=== PATIENT | female | born 1985 | race African-American/Black ===

== ENCOUNTER 2022-04-24 10:59 | Emergency (ER) | payer MEDICAID ==
[~2022-04-24] VITALS: Ht 167.6 cm; Wt 123.0 kg
[2022-04-24 11:08] VITALS: BP 128/72
[2022-04-24] MEDS ORDERED: ACETAMINOPHEN 325MG TABLET PO ONE (12:30)
[2022-04-24] MEDS ORDERED: TOPUD PO (14:10)
== END 2022-04-24 14:27 | disposition home or self-care (01) ==
LOC: ER 10:59
DX: Z48.00 Encounter for change or removal of nonsurgical wound dressing (principal); M79.18 Myalgia, other site; J45.909 Unspecified asthma, uncomplicated; I11.0 Hypertensive heart disease with heart failure; I50.9 Heart failure, unspecified; Z87.81 Personal history of (healed) traumatic fracture
CPT/HCPCS: 29125; 99283

== ENCOUNTER 2022-05-31 12:26 | Emergency (ER) | payer MEDICAID ==
[~2022-05-31] VITALS: Ht 167.6 cm; Wt 114.0 kg
[~2022-05-31 12:26] MED LIST: TOPUD PO
[2022-05-31] MEDS ORDERED: IBUPROFEN 600MG TABLET PO STA (13:47)
[2022-05-31] MEDS ORDERED: SODIUM CHLORIDE 0.9% 1,000 ML IV ONE (14:00)
[2022-05-31] MEDS ORDERED: LORAZEPAM 1MG TABLET PO ONE (14:00)
[2022-05-31 15:36] LABS: BASOPHILS % 0.5 % (0.0-2.0); EOSINOPHILS % 0.7 % (0.0-5.0); HEMATOCRIT. 35.4 % (36.0-48.0); HEMOGLOBIN. 11.5 g/dL (12.0-16.0); LYMPHOCYTES % 23.4 % (20.0-50.0); MEAN CORPUSCULAR HEMOGLOBIN 25.5 pg (28.0-32.0); MEAN CORPUSCULAR VOLUME 78.4 fL (81.0-99.0); MEAN PLATELET VOLUME 10.5 fl (7.4-10.4); NEUTROPHILS % 66.4 % (40.0-76.0); PLATELET 191 x1000/uL (130-400); RED BLOOD CELL COUNT 4.51 mill/uL (4.2-5.4); RED CELL DISTRIBUTION WIDTH 15.7 % (11.6-14.6)
[2022-05-31 15:44] LABS: CLARITY URINE CLOUDY (CLEAR); COLOR URINE DARK YELLOW (YELLOW); KETONES URINE 1+ (NEGATIVE); LEUKOCYTE ESTERASE URINE 1+ (NEGATIVE); NITRITE URINE NEGATIVE (NEGATIVE); OCCULT BLOOD URINE 3+ (NEGATIVE); PH URINE 5.5 (4.5-8.0); PROTEIN URINE TRACE (NEGATIVE); SPECIFIC GRAVITY URINE 1.024 (1.005-1.030)
[2022-05-31 15:52] LABS: CHLORIDE 110 mEq/L (98-107)
[2022-05-31 16:03] LABS: ETHANOL BLOOD < 10 mg/dL
[2022-05-31 16:07] LABS: *AMPHETAMINES SCREEN URINE NEGATIVE (NEGATIVE); *BARBITURATES SCREEN URINE NEGATIVE (NEGATIVE); *BENZODIAZEPINES SCREEN URINE NEGATIVE (NEGATIVE); *COCAINE SCREEN URINE NEGATIVE (NEGATIVE); METHADONE URINE SCREEN NEGATIVE (NEGATIVE); OPIATES URINE SCREEN NEGATIVE (NEGATIVE); PHENCYCLIDINE URINE SCREEN NEGATIVE (NEGATIVE)
[2022-05-31 16:08] LABS: CANNABINOID URINE SCREEN PRESUMTIVE POSITIVE (NEGATIVE)
[2022-05-31] MEDS ORDERED: VIST25 MT (16:27)
[2022-05-31 17:08] VITALS: BP 158/98
== END 2022-05-31 17:20 | disposition home or self-care (01) ==
LOC: ER 12:26
DX: F41.0 Panic disorder [episodic paroxysmal anxiety] (principal); I11.0 Hypertensive heart disease with heart failure; I50.9 Heart failure, unspecified; D64.9 Anemia, unspecified; F32.9 Major depressive disorder, single episode, unspecified; J45.909 Unspecified asthma, uncomplicated
CPT/HCPCS: 36415; 71045; 80053; 80305; 80307; 80320; 80329; 81003; 82962; 83880; 84484; 85025; 96360; 99284; J7030; Z7610; G0480

== ENCOUNTER 2023-01-02 19:35 | Emergency (ER) | payer MEDICAID ==
[~2023-01-02] VITALS: Ht 167.6 cm; Wt 107.0 kg
[~2023-01-02 19:35] MED LIST changes: +VIST25 MT
[2023-01-02 20:02] VITALS: O2SAT 100
[2023-01-02 21:13] LABS: BASOPHILS % 0.4 % (0.0-2.0); DIFFERENTIAL COMMENT 0; EOSINOPHILS % 0.4 % (0.0-5.0); HEMATOCRIT. 37.8 % (36.0-48.0); HEMOGLOBIN. 12.3 g/dL (12.0-16.0); LYMPHOCYTES % 15.3 % (20.0-50.0); MEAN CORPUSCULAR HEMOGLOBIN 25.1 pg (28.0-32.0); MEAN CORPUSCULAR HGB CONC 32.6 g/dL (31.0-37.0); MEAN PLATELET VOLUME 11.4 fl (7.4-10.4); MONOCYTES % 5.3 % (2.0-8.0); NEUTROPHILS % 78.6 % (40.0-76.0); PLATELET 193 x1000/uL (130-400); RED BLOOD CELL COUNT 4.91 mill/uL (4.2-5.4); RED CELL DISTRIBUTION WIDTH 15.8 % (11.6-14.6); WHITE BLOOD COUNT 7.8 x1000/uL (4.5-11.0)
[2023-01-02 21:19] LABS: CHLORIDE 112 mEq/L (98-107); INDEX HEMOLYSI 1 (1-3); INDEX ICTERIC 1 (1-4); INDEX LIPEMIC 1 (1-3); POTASSIUM 3.6 mEq/L (3.5-5.1); SODIUM 141 mEq/L (136-145)
[2023-01-02 21:30] LABS: ACETAMINOPHEN <2 ug/mL ug/mL (10-30); ALANINE AMINOTRANSFERASE 22 IU/L (13-61); ALBUMIN 3.4 g/dL (3.4-5.0); ASPARTATE AMINOTRANSFERASE 16 IU/L (15-37); BILIRUBIN TOTAL 0.5 mg/dL (0.1-1.0); CALCIUM 8.6 mg/dL (8.5-10.1); CARBON DIOXIDE 24 mEq/L (21-32); CREATININE 0.7 mg/dL (0.6-1.3); ETHANOL BLOOD < 10 mg/dL (<10); GLUCOSE 97 mg/dL (70-105); PROTEIN TOTAL 8.1 g/dL (6.0-8.3); UREA NITROGEN BLOOD 10 mg/dL (7-21)
[2023-01-02 22:09] LABS: HCG SCREEN NEGATIVE
[2023-01-03 03:51] LABS: CHLORIDE 114 mEq/L (98-107); INDEX HEMOLYSI 1 (1-3); INDEX ICTERIC 1 (1-4); INDEX LIPEMIC 1 (1-3); POTASSIUM 3.6 mEq/L (3.5-5.1); SODIUM 141 mEq/L (136-145)
[2023-01-03 03:58] LABS: ACETAMINOPHEN <2 ug/mL ug/mL (10-30); ALANINE AMINOTRANSFERASE 20 IU/L (13-61); ALBUMIN 3.2 g/dL (3.4-5.0); ASPARTATE AMINOTRANSFERASE 12 IU/L (15-37); BILIRUBIN TOTAL 0.4 mg/dL (0.1-1.0); CALCIUM 8.1 mg/dL (8.5-10.1); CARBON DIOXIDE 25 mEq/L (21-32); CREATININE 0.6 mg/dL (0.6-1.3); GLUCOSE 83 mg/dL (70-105); PROTEIN TOTAL 7.3 g/dL (6.0-8.3); UREA NITROGEN BLOOD 9 mg/dL (7-21)
[2023-01-03 05:15] LABS: CLARITY URINE CLEAR (CLEAR); COLOR URINE YELLOW (YELLOW); GLUCOSE URINE NEGATIVE (NEGATIVE); KETONES URINE 1+ (NEGATIVE); LEUKOCYTE ESTERASE URINE NEGATIVE (NEGATIVE); NITRITE URINE NEGATIVE (NEGATIVE); OCCULT BLOOD URINE NEGATIVE (NEGATIVE); PROTEIN URINE NEGATIVE (NEGATIVE); SPECIFIC GRAVITY URINE 1.023 (1.005-1.030)
[2023-01-03 05:27] LABS: *AMPHETAMINES SCREEN URINE NEGATIVE (NEGATIVE); *BARBITURATES SCREEN URINE NEGATIVE (NEGATIVE); *BENZODIAZEPINES SCREEN URINE NEGATIVE (NEGATIVE); *COCAINE SCREEN URINE NEGATIVE (NEGATIVE); ECSTASY MDMA SCREEN URINE NEGATIVE (NEGATIVE); OPIATES URINE SCREEN NEGATIVE (NEGATIVE); PHENCYCLIDINE URINE SCREEN NEGATIVE (NEGATIVE)
[2023-01-03 05:37] LABS: CANNABINOID URINE SCREEN PRESUMTIVE POSITIVE (NEGATIVE)
[2023-01-03 17:55] VITALS: BP 124/70; PULSE 60; RESP 18; TEMP 98.7
== END 2023-01-03 18:08 ==
LOC: ER 19:35
DX: R45.851 Suicidal ideations (principal); Z20.822 Contact with and (suspected) exposure to COVID-19
CPT/HCPCS: 80053 ×2; 80307 ×2; 80329 ×2; 80320; 84703; 85025; 36415 ×2; 93005; 99285; 80305; 81003; 87426; C9803; G0480

== ENCOUNTER 2023-09-26 10:10 | Emergency (ER) | payer MEDICAID, OTHER ==
[~2023-09-26] VITALS: Ht 162.6 cm; Wt 113.0 kg
[2023-09-26 10:12] VITALS: BP 133/90; PULSE 64; RESP 16; TEMP 98.1; O2SAT 100
[2023-09-26] MEDS: MORPHINE SULFATE 4 MG/ML INJ (FOR IV/IM USE) IM ONE (11:33)
[2023-09-26] MEDS: ONDANSETRON 4MG ODT PO ONE (11:33)
== END 2023-09-26 14:52 | disposition home or self-care (01) ==
LOC: ER 10:50
DX: M54.9 Dorsalgia, unspecified (principal); I10 Essential (primary) hypertension; J45.909 Unspecified asthma, uncomplicated; F32.A Depression, unspecified
CPT/HCPCS: 81025; 96372; 99283; Q0162; J2270; Z7610

== ENCOUNTER 2023-09-28 17:11 | Emergency (ER) | payer OTHER ==
[~2023-09-28] VITALS: Ht 162.6 cm; Wt 105.0 kg
[2023-09-28 17:20] VITALS: BP 151/95; PULSE 61; TEMP 98.6; O2SAT 100
[2023-09-28] MEDS: OXYCODONE HCL/ACETAMINOPHEN 5/325MG TABLET PO ONE (18:05)
[2023-09-28] MEDS ORDERED: CEPH500T MT (18:14)
[2023-09-28] MEDS ORDERED: HYDR-4001 MT (18:14)
[2023-09-28 18:30] VITALS: RESP 16
== END 2023-09-28 18:55 | disposition home or self-care (01) ==
LOC: ER 17:11
DX: S31.139A Puncture wound of abdominal wall without foreign body, unspecified quadrant without penetration into peritoneal cavity, initial encounter (principal); J45.909 Unspecified asthma, uncomplicated; F32.9 Major depressive disorder, single episode, unspecified; I49.9 Cardiac arrhythmia, unspecified; I20.9 Angina pectoris, unspecified; W34.09XA Accidental discharge from other specified firearms, initial encounter; Y93.89 Activity, other specified; Y92.89 Other specified places as the place of occurrence of the external cause; Y99.8 Other external cause status
CPT/HCPCS: 99283

== ENCOUNTER 2025-02-21 00:57 | Emergency (ER) | payer SELFPAY ==
[~2025-02-21] VITALS: Ht 167.6 cm; Wt 113.0 kg
[~2025-02-21 00:57] MED LIST changes: +CEPH500T MT; +HYDR-4001 MT
[2025-02-21 01:04] VITALS: O2SAT 98
[2025-02-21] MEDS: HYDROCODONE/ACETAMINOPHEN 5/325MG TABLET PO ONE (02:14)
[2025-02-21] MEDS: KETOROLAC 30MG/ML VIAL IM ONE (02:14)
[2025-02-21 02:51] LABS: CLARITY URINE CLOUDY (CLEAR); COLOR URINE DARK YELLOW (YELLOW); GLUCOSE URINE NEGATIVE (NEGATIVE); KETONES URINE 3+ (NEGATIVE); LEUKOCYTE ESTERASE URINE 1+ (NEGATIVE); NITRITE URINE NEGATIVE (NEGATIVE); OCCULT BLOOD URINE NEGATIVE (NEGATIVE); PH URINE 5.0 (4.5-8.0); PROTEIN URINE TRACE (NEGATIVE); SPECIFIC GRAVITY URINE 1.026 (1.005-1.030); UROBILINOGEN URINE 1.0 E.U./dL (0.2-1.0)
[2025-02-21] MEDS ORDERED: NAPR-1176 MT (03:34)
[2025-02-21] MEDS ORDERED: CYCL10TA21 MT (03:34)
[2025-02-21 03:45] LABS: RBC URINE 0-2 /hpf (0-2); SQUAMOUS EPITHELIAL CELL URINE 1+ /lpf (RARE/1+); WBC URINE 0-2 /hpf (0-2)
[2025-02-21 03:46] LABS: BACTERIA URINE 1+
[2025-02-21 03:55] VITALS: BP 187/94; PULSE 74; RESP 14; TEMP 36.6; O2SAT 100
== END 2025-02-21 04:00 | disposition home or self-care (01) ==
LOC: ER 00:57
DX: G89.29 Other chronic pain (principal); M54.50 Low back pain, unspecified; J45.909 Unspecified asthma, uncomplicated; I11.9 Hypertensive heart disease without heart failure; I50.9 Heart failure, unspecified
CPT/HCPCS: 99285; 72128; 81003; 81025; 72131; 96372; J1885

== ENCOUNTER 2025-02-23 18:49 | Emergency (ER) | payer SELFPAY ==
[~2025-02-23] VITALS: Ht 170.2 cm; Wt 100.0 kg
[~2025-02-23 18:49] MED LIST changes: +CYCL10TA21 MT; +NAPR-1176 MT
[2025-02-23 18:55] VITALS: O2SAT 96
[2025-02-23] MEDS ORDERED: ACET-2708 MT (22:43)
[2025-02-23] MEDS: KETOROLAC 30MG/ML VIAL IM ONE (23:01)
[2025-02-23 23:04] VITALS: BP 160/97; PULSE 64; RESP 14; TEMP 36.8; O2SAT 100
== END 2025-02-23 23:13 | disposition home or self-care (01) ==
LOC: ER 18:49
DX: M25.473 Effusion, unspecified ankle (principal); J45.909 Unspecified asthma, uncomplicated; I11.9 Hypertensive heart disease without heart failure; Z59.01 Sheltered homelessness; Z79.899 Other long term (current) drug therapy
CPT/HCPCS: 81025; 36415; 73560; 73600; 29505; 96372; 99284; J1885; Z7610